=== PATIENT | female | born 1955 | race Caucasian/White ===

== ENCOUNTER 2017-06-13 18:54 | Outpatient (CLI) | payer OTHER | END 2017-06-13 18:55 | disposition critical access hospital (66) | LOC: EMS 18:54 | PROVIDERS: ATTEND Surgery | DX: R10.9 Unspecified abdominal pain (principal); R11.2 Nausea with vomiting, unspecified | CPT/HCPCS: A0425; A0427 ==

== ENCOUNTER 2017-06-13 19:14 | Observation (INO) | payer OTHER ==
[2017-06-13] MEDS ORDERED: HYDROCORTISONE SUCCINATE 100 MG/2 ML VIAL IVP STA (19:25)
[2017-06-13] MEDS ORDERED: ONDANSETRON 4 MG/2 ML VIAL IVP STA (19:25)
[2017-06-13] MEDS ORDERED: SODIUM CHLORIDE 0.9% 1,000 ML IV ONE ×2 (19:25)
[2017-06-13] MEDS ORDERED: HYDROCORTISONE SUCCINATE 100 MG/2 ML VIAL ONE (19:33)
[2017-06-13] MEDS ORDERED: ONDANSETRON 4 MG/2 ML VIAL ONE (19:33)
[2017-06-13] MEDS ORDERED: PROMETHAZINE INJ 25 MG in SODIUM CHLORIDE 0.9% 50 ML IV STA (20:08)
--- NOTE | 2017-06-13 20:09 | ED Physician Documentation ---
History of Present Illness - Stated complaint Stated Complaint: ABD PN/NAUSEA - Chief complaint Chief Complaint: Abd Pain - History obtained from History obtained from: Patient, Family - History of Present Illness Timing: Today Pain level max: 5 Pain level now: 5 - Additonal information Additional information: Patient is a 61-year-old female who recently moved here from [place]. She has a history of [place]'s disease and is decreased her steroids from 4 pills twice a day to 3 pills twice a day. Today developed vomiting. Also weakness. Also lightheadedness and dizziness. She states that this is what her normal adrenal crisis feels like. Denies any fevers. States her abdomen is sore, but no pain prior to vomiting. Has not taken anything for the vomiting. Worse with eating. Nothing makes it better Review of Systems Ten Systems: 10 systems reviewed and negative Constitutional: denies: Fever, Chills Ears: denies: Ear pain Nose: denies: Rhinorrhea / runny nose, Congestion Throat: denies: Sore throat Cardiac: denies: Chest pain / pressure Respiratory: denies: Cough, Wheezing : denies: Dysuria, Frequency, Hesitancy Skin: denies: Rash Musculoskeletal: denies: Neck pain, Back pain Neurologic: denies: Headache PD PAST MEDICAL HISTORY - Past Medical History Past Medical History: Yes Respiratory: Asthma Endocrine/Autoimmune: Type 2 diabetes, HyPOthyroidism, Other Musculoskeletal: Fibromyalgia Other Past Medical History: addisons disease, CLL - Past Surgical History Past Surgical History: Yes Ortho: Knee replacement, Other /[employer]: Hysterectomy, Oophrectomy - Present Medications Home Medications: Ambulatory Orders Medication Instructions Recorded Confirmed Duloxetine HCl [Cymbalta] 1 tab PO DAILY 06/13/17 06/13/17 Fludrocortisone [Florinef] 1 tab PO DAILY 06/13/17 06/13/17 Hydrocortisone 3 tab PO BID 06/13/17 06/13/17 Levothyroxine [Synthroid] 1 tab PO DAILY 06/13/17 06/13/17 Lisinopril 5 mg PO DAILY 06/13/17 06/13/17 Mirabegron [Myrbetriq] 1 tab PO DAILY 06/13/17 06/13/17 Omeprazole [PriLOSEC] 1 tab PO DAILY 06/13/17 06/13/17 metFORMIN [Glucophage] 500 mg PO BIDWM 06/13/17 06/13/17 - Allergies Allergies/Adverse Reactions: Allergies Allergy/AdvReac Type Severity Reaction Status Date / Time No Known Drug Allergies Allergy Verified 06/13/17 19:24 - Social History Does the pt smoke?: No Smoking Status: Never smoker PD ED PE NORMAL - Vitals Vital signs reviewed: Yes - General General: Alert and oriented X 3, No acute distress, Well developed/nourished - HEENT HEENT: PERRL, Moist mucous membranes - Neck Neck: Supple, no meningeal sign - Cardiac Cardiac: RRR, Strong equal pulses - Respiratory Respiratory: No respiratory distress, Clear bilaterally - Abdomen Abdomen: Soft, Non distended, Other (Mild diffuse tenderness without peritoneal signs.) - Back Back: No spinal TTP - Derm Derm: Warm and dry, No rash - Extremities Extremities: No edema, No calf tenderness / cord - Neuro Neuro: Alert and oriented X 3, fitter placer 2-12 intact, No motor deficit, No sensory deficit, Normal speech - Psych Psych: Normal mood, Normal affect Results - Vitals Vitals: Vital Signs - 24 hr 06/13/17 06/13/17 06/13/17 19:15 19:33 20:37 Temperature 36.0 C L Heart Rate 99 88 88 Respiratory 20 28 H 19 Rate Blood Pressure 120/74 124/66 126/80 O2 Saturation 100 100 93 Oxygen O2 Source Room air Oxygen Flow Rate 1 - Labs Labs: Laboratory Tests 06/13/17 06/13/17 06/13/17 20:07 20:07 20:07 WBC 22.8 H RBC 5.45 H Hgb 14.8 Hct 46.0 MCV 84.3 MCH 27.1 MCHC 32.1 RDW 14.7 Plt Count 398 MPV 8.7 Neut # Not Reportable Lymph # Not Reportable [place] # Not Reportable Eos # Not Reportable Baso # Not Reportable Absolute Nucleated RBC Not Reportable Total Counted 100 Band Neuts % (Manual) 3 Nucleated RBC % Not Reportable Neutrophils # (Manual) 21.4 H Lymphocytes # (Manual) 0.9 L Monocytes # (Manual) 0.5 Manual Slide Review Indicated Platelet Estimate NORMAL (130-450,000) Platelet Morphology NORMAL APPEARANCE RBC Morph Micro Appear NORMAL APPEARANCE Sodium 136 Potassium 4.0 Chloride 100 L Carbon Dioxide 21 Anion Gap 15.0 H BUN 24 H Creatinine 1.1 H Estimated GFR (MDRD) 51 L Glucose 116 H Calcium 9.2 Total Bilirubin 0.4 AST 27 ALT 36 Alkaline Phosphatase 75 Total Protein 7.2 Albumin 4.1 Globulin 3.1 Albumin/Globulin Ratio 1.3 Lipase 36 TSH 1.68 Free T4 0.92 Urine Color Urine Clarity Urine pH Ur Specific [place] Urine Protein Urine Glucose (UA) Urine Ketones Urine Occult Blood Urine Nitrite Urine Bilirubin Urine Urobilinogen Ur Leukocyte Esterase Urine RBC Urine WBC Ur Squamous Epith Cells Urine Bacteria Urine Casts Urine Mucus Ur Microscopic Review Urine Culture Comments 06/13/17 20:07 WBC RBC Hgb Hct MCV MCH MCHC RDW Plt Count MPV Neut # Lymph # [place] # Eos # Baso # Absolute Nucleated RBC Total Counted Band Neuts % (Manual) Nucleated RBC % Neutrophils # (Manual) Lymphocytes # (Manual) Monocytes # (Manual) Manual Slide Review Platelet Estimate Platelet Morphology RBC Morph Micro Appear Sodium Potassium Chloride Carbon Dioxide Anion Gap BUN Creatinine Estimated GFR (MDRD) Glucose Calcium Total Bilirubin AST ALT Alkaline Phosphatase Total Protein Albumin Globulin Albumin/Globulin Ratio Lipase TSH Free T4 Urine Color YELLOW Urine Clarity CLEAR Urine pH 7.5 Ur Specific [place] 1.020 Urine Protein 100 H Urine Glucose (UA) NEGATIVE Urine Ketones TRACE Urine Occult Blood NEGATIVE Urine Nitrite NEGATIVE Urine Bilirubin NEGATIVE Urine Urobilinogen 0.2 (NORMAL) Ur Leukocyte Esterase NEGATIVE Urine RBC None Seen Urine WBC 6-10 H Ur Squamous Epith Cells FEW Squamous Urine Bacteria Few Urine Casts 6-10 Hyaline Casts Urine Mucus Few Strands Ur Microscopic Review INDICATED Urine Culture Comments INDICATED PD MEDICAL DECISION MAKING - ED course Complexity details: reviewed results, re-evaluated patient, considered differential, d/w patient, d/w family ED course: Patient is a 61-year-old female with a history of [place]'s disease who presents to the emergency department with what appears to be a mild adrenal crisis. Given Solu-Cortef as well as Phenergan and Zofran. Also given IV fluids. She is still remains lightheaded with standing and nauseated. Unable to tolerate adequate p.o. Given Rocephin for the UTI. Will place her in observation for further care throughout the night and to ensure that she returns to her baseline status. Discussed the case with Dr. Beck, hospitalist who accepts. This document was made in part using voice recognition software. While efforts are made to proofread this document, sound alike and grammatical errors may occur. Departure - Departure Disposition: ED Place in Observation Clinical Impression: Addisonian crisis, Dehydration UTI (urinary tract infection) Qualifiers: Urinary tract infection type: acute cystitis Hematuria presence: without hematuria Qualified Code(s): N30.00 - Acute cystitis without hematuria Vomiting Qualifiers: Vomiting type: unspecified Vomiting Intractability: intractable Nausea presence : with nausea Qualified Code(s): R11.2 - Nausea with vomiting, unspecified Condition: Good Discharge Date/Time: 06/13/17 23:32
[2017-06-13] MEDS ORDERED: PROMETHAZINE 25 MG/1 ML VIAL ONE (20:16)
[2017-06-13 20:18] LABS: BASOPHILS % (AUTO) 0.4 %; EOSINOPHILS % (AUTO) 0.6 %; HGB - HEMOGLOBIN 14.8 g/dL (12.0-16.0); LYMPHOCYTES % (AUTO) 6.7 %; MEAN CORPUSCULAR HEMOGLOBIN 27.1 pg (27.0-31.0); MEAN CORPUSCULAR HGB CONC 32.1 g/dL (32.0-36.0); MEAN CORPUSCULAR VOLUME 84.3 fL (81.0-99.0); MEAN PLATELET VOLUME 8.7 fL (7.9-10.8); MONOCYTES % (AUTO) 6.4 %; NEUTROPHILS % (AUTO) 85.9 %; RED BLOOD COUNT 5.45 10^6/uL (4.20-5.40); RED CELL DISTRIBUTION WIDTH 14.7 % (12.0-15.0); UNCORRECTED WHITE BLOOD COUNT 22.8 x10^3/uL; WHITE BLOOD COUNT 22.8 x10^3/uL (4.8-10.8)
[2017-06-13 20:26] LABS: BILIRUBIN,URINE NEGATIVE (NEGATIVE); PH,URINE 7.5 PH (5.0-7.5)
[2017-06-13 20:30] LABS: UA w/ MICROSCOPIC CHARGE YES
[2017-06-13 20:40] LABS: ALBUMIN/GLOBULIN RATIO 1.3 (1.0-2.2); BILIRUBIN,TOTAL 0.4 mg/dL (0.2-1.0); CALCIUM 9.2 mg/dL (8.5-10.3); CREATININE 1.1 mg/dL (0.4-1.0); TOTAL PROTEIN 7.2 g/dL (6.7-8.2)
[2017-06-13 20:43] LABS: UR CULTURE IF IND INDICATED
[2017-06-13] MEDS ORDERED: KETOROLAC 60 MG/2 ML VIAL IVP STA (20:47)
[2017-06-13 20:51] LABS: BAND NEUTROPHILS % (MANUAL) 3 %; LYMPHOCYTES % (MANUAL) 4 %; NEUTROPHILS % (MANUAL) 91 %; TOTAL CELLS COUNTED 100
[2017-06-13 20:52] LABS: NP AUTO DIFFERENTIAL? YES; NP MAN DIFFERENTIAL? NO; PLATELET ESTIMATE, MANUAL NORMAL (130-450,000) (NORMAL); PLATELET MORPHOLOGY NORMAL APPEARANCE (NORMAL)
[2017-06-13] MEDS ORDERED: cefTRIAXone 1 GM VIAL IVP STA (20:57)
[2017-06-13] MEDS ORDERED: KETOROLAC 30 MG/ML VIAL ONE (20:57)
[2017-06-13 20:59] LABS: THYROID STIMULATING HORMONE 1.68 uIU/mL (0.34-5.60)
[2017-06-13] MEDS ORDERED: cefTRIAXone 1 GM VIAL ONE (21:17)
[2017-06-13] MEDS ORDERED: oxyCODONE 5 MG TABLET PO PRN ×2 (22:31)
[2017-06-13] MEDS ORDERED: SODIUM CHLORIDE FLUSH 0.9% 10 ML SYRINGE IVP PRN (22:31)
[2017-06-13] MEDS ORDERED: PROMETHAZINE 25 MG/1 ML VIAL IM PRN (22:31)
[2017-06-13] MEDS ORDERED: ONDANSETRON 4 MG/2 ML VIAL IVP PRN (22:31)
[2017-06-13] MEDS ORDERED: ZOLPIDEM 5 MG TABLET PO PRN (22:31)
[2017-06-13] MEDS ORDERED: PROCHLORPERAZINE 10 MG/2 ML VIAL IVP PRN (22:31)
--- NOTE | 2017-06-13 22:51 | HISTORY & PHYSICAL EXAMINATION ---
Chief Complaint - Chief Complaint Chief Complaint: Nausea and vomiting History of Present Illness - Admitted From Admitted From:: Emergency department - History Obtained From Records Reviewed: Yes History obtained from: Patient Exam Limitations: None - History of Present Illness HPI Comment/Other: Patient is a 61-year-old female with a past medical history significant for Juan Francisco's disease, CLL in remission, asthma, fibromyalgia, diabetes on metformin , hyperlipidemia, hypertension, osteoarthritis and hypothyroidism who presented to the emergency department with a chief complaint of nausea and vomiting. The patient states that when she woke up this morning she felt slightly nauseous and throughout the day felt queasy but did not vomit. She states that her symptoms intensified at around 5 PM and then she began having episodes of emesis. She states that she had several episodes at home and then began to develop shaking and muscle spasms. The patient states that she had spasming of her arms, legs and aching all throughout her body. She states that she felt as though she was going to pass out. She states that she was having cold sweats and all of this is very similar to her symptoms when she gets in Juan Francisco's crisis. The patient denies any fevers, urinary urgency, urinary frequency or dysuria. She also denies having had any cough, shortness of air, neck stiffness , headache or focal neurologic deficits. The patient denies having any abdominal pain or diarrhea. The patient states that she has an emergency cortisone injection and injected herself at home thinking that this may improve her symptoms however she continued to have symptoms and finally decided she needed to come into the emergency department. The patient denies any nasal congestion, sore throat, difficulty swallowing, orthopnea, PND, increased lower extremity swelling, changes in her appetite, recent unintentional weight loss, night sweats, back pain, joint swelling, joint pain, polyuria, polydipsia, hair loss, skin changes, changes in her vision. On presentation to the emergency department the patient was afebrile and slightly tachycardic with heart rate of 99 her blood pressure was normal and she was not in any respiratory distress. The patient did have nausea and vomiting in the emergency department. And she did complain of muscle spasms and stiffness. The patient was given a liter of IV fluid, a dose of hydrocortisone 100 mg IV, several doses of Zofran and Toradol. The patient did have some improvement in her symptoms but was still unable to keep down water and food in the emergency department. The patient was found to have a WBC of 22.8 her electrolytes were within normal limits. The patient had a urine analysis which did show 6-10 WBCs and a few bacteria consistent with a urinary tract infection. The patient was given a dose of IV ceftriaxone in the emergency department. Given the patient's nausea and vomiting and inability to keep down p.o. medication in the setting of likely Juan Francisco's crisis the patient was placed in observation for further treatment of her nausea and treatment for [place]'s with IV hydrocortisone. History - Past Medical History Cardiovascular: reports: Hypertension, High cholesterol Respiratory: reports: Asthma Endocrine/Autoimmune: reports: Type 2 diabetes, HyPOthyroidism, Other ([place]' s disease) Musculoskeletal: reports: Osteoarthritis, Fibromyalgia MRSA Hx?: No Other Past Medical History: addisons disease, CLL - Past Surgical History Ortho: reports: Knee replacement, Other /[employer]: reports: Hysterectomy, Oophrectomy - Family & Social History Family History: Mother: , CAD, Father: Alive and Well (3 sisters with lupus, 2 sisters with rheumatoid arthritis), Cancer (Dad had melanoma, paternal grandmother had stomach cancer), Sister: Alive and Well, Diabetes, Type 2, Other family: Cancer Living arrangement: At home Living Situation: With family Social History Notes: The patient is originally from [place], [place]. She worked there in the [employer] system for 36 years and recently retired at the beginning of this year. The patient has now moved to [facility] just a few months ago. She [place] a [place] the [address] but is currently living with her sister as her house is being painted. She moved would be [place] for fdc and to be closer to her sister. The patient is she had 2 biological children 1 of whom and the other one is grown and lives in [place]. The patient is fully independent. She has never smoked cigarettes she does not currently drink alcohol and denies any illicit drug use. - POLST Patient has POLST: No POLST Status: Full Code Meds/Allgy - Home Medications Home Medications: Ambulatory Orders Medication Instructions Recorded Confirmed Duloxetine HCl [Cymbalta] 1 tab PO DAILY 06/13/17 06/13/17 Fludrocortisone [Florinef] 1 tab PO DAILY 06/13/17 06/13/17 Hydrocortisone 3 tab PO BID 06/13/17 06/13/17 Levothyroxine [Synthroid] 1 tab PO DAILY 06/13/17 06/13/17 Lisinopril 5 mg PO DAILY 06/13/17 06/13/17 Mirabegron [Myrbetriq] 1 tab PO DAILY 06/13/17 06/13/17 Omeprazole [PriLOSEC] 1 tab PO DAILY 06/13/17 06/13/17 metFORMIN [Glucophage] 500 mg PO BIDWM 06/13/17 06/13/17 - Allergies Allergies/Adverse Reactions: Allergies Allergy/AdvReac Type Severity Reaction Status Date / Time No Known Drug Allergies Allergy Verified 06/13/17 19:24 Review of Systems - Other Findings Other Findings: A comprehensive review of systems was performed the pertinent positives and negatives are stated above in the HPI and the remainder of the review of systems is negative. Exam - Vital Signs Reviewed Vital Signs: Yes Vital Signs: Vital Signs x48h Temp Pulse Resp BP Pulse Ox 06/13/17 20:37 88 19 126/80 93 06/13/17 19:33 88 28 H 124/66 100 06/13/17 19:15 36.0 C L 99 20 120/74 100 - Physical Exam General Appearance: positive: Alert, Mild distress (Still nauseated and appears ill and weak) Eyes Bilateral: positive: Normal inspection, PERRL, EOMI, No lid inflammation, Conjunctivae nml, No scleral icterus ENT: positive: ENT inspection nml, Pharynx nml, Dry mucous membranes. negative : Purulent nasal drainage, Pharyngeal erythema, Oral lesions Neck: positive: Nml inspection, Thyroid nml, No JVD, Trachea midline. negative : Thyromegaly, Lymphadenopathy (R), Lymphadenopathy (L), Stiff neck, Carotid bruit, Tracheal deviation Respiratory: positive: Chest non-tender, No respiratory distress, Breath sounds nml. negative: Wheezes, Rales, Rhonchi Cardiovascular: positive: Regular rate & rhythm, No murmur, No gallop Peripheral Pulses: positive: 2+ Abdomen: positive: Non-tender, No organomegaly, Nml bowel sounds, No distention. negative: Guarding, Rebound, Hepatomegaly Back: positive: Nml inspection. negative: CVA tenderness (R), CVA tenderness (L ) Skin: positive: Color nml, No rash, Warm, Dry. negative: Diaphoresis, Pallor Extremities: positive: Non-tender, Full ROM, Nml appearance, No pedal edema Neurologic/Psychiatric: positive: Oriented x3, CN's nml (2-12), Motor nml, Sensation nml, Mood/affect nml Conclusion/Plan - Problem List (1) Addisonian crisis Conclusion/Plan: Patient has a history of [place]'s disease. She appears to be presenting with an Juan Francisco's crisis. She states that the symptoms are typical to her normal [place]'s crisis with muscle spasms and cold sweats. The patient's symptoms started after she had nausea and vomiting through the day. It is likely that the patient has developed a gastroenteritis or has a urinary tract infection that is leading to increased stress on her endocrine system and with poor response to stress due to the [place]'s disease she is now going into an Juan Francisco 's crisis. The patient did have some response to IV hydrocortisone and antiemetics in the emergency department however she was still unable to tolerate p.o. intake and therefore is being placed in observation for further treatment with IV hydrocortisone and treatment for her nausea. The patient is hemodynamically stable. Plan: IV hydrocortisone 50 mg every 8 hours IV fluids IV antibiotics for treatment of urinary tract infection Check morning cortisol level Monitor vital signs Once patient has improved we will likely need to switch her to oral steroids and increase her maintenance dose for the next several days and then taper back down to her maintenance dose. The patient will need to establish care with her primary care physician now that she is moved would be [place] and will likely need to be referral to an laborer [facility] for further management of her Juan Francisco's disease (2) Nausea and vomiting Conclusion/Plan: The patient presents with intractable nausea and vomiting. Despite treatment with several doses of Zofran and Phenergan in the emergency department the patient continued to be nauseated and unable to tolerate p.o. intake. The patient may have this nausea secondary to urinary tract infection or this could be a separate process and a gastroenteritis. Either way this has caused a [place]'s crisis and the patient is being placed in observation for treatment of her nausea and vomiting. Plan: Give IV fluids Give IV antiemetics Monitor electrolytes and vital signs (3) UTI (urinary tract infection) Conclusion/Plan: The patient was afebrile and had no urinary symptoms at home. However she did present with nausea and vomiting. She also had symptoms of her normal [place]' s crisis. The patient's WBC count was elevated at 22.8 suggesting possible infection. The patient's urinalysis did have some WBCs and bacteria concerning for infection. Given the patient's history of Juan Francisco's disease and current [place] crisis symptoms in the setting of having an elevated leukocytosis although the patient's UA is not very impressive and she does not have urinary symptoms we will side on the side of caution and treat patient for urinary tract infection with IV antibiotics. Plan: Give patient IV ceftriaxone daily Follow-up urine culture Qualifiers: Urinary tract infection type: acute cystitis Hematuria presence: without hematuria Qualified Code(s): N30.00 - Acute cystitis without hematuria (4) Diabetes Conclusion/Plan: Patient has a history of diabetes and is on metformin at home. Her blood glucose is only mildly elevated at 116 on presentation. Plan: Patient will be placed on sliding scale insulin while she is hospitalized Patient will be placed on diabetic diet while she is hospitalized We will check a hemoglobin A1c We will monitor patient's blood glucose before meals at bedtime Qualifiers: Diabetes mellitus type: type 2 (5) Hypertension Conclusion/Plan: Patient states that her blood pressure fluctuates between high and low. She is on Florinef and she is on lisinopril at home. On presentation to the emergency department the patient's blood pressure is in the normal range. Plan: Patient will be continued on her home dose of lisinopril and Florinef while she is hospitalized Qualifiers: Hypertension type: essential hypertension Qualified Code(s): I10 - Essential (primary) hypertension (6) Hypothyroidism Conclusion/Plan: Patient has history of hypothyroidism and is on Synthroid at home. The patient' s TSH level is within the normal range on presentation. Plan: Patient will be continued on her home dose of Synthroid (7) Prophylactic use of low molecular weight heparin for venous thromboembolism Conclusion/Plan: Patient will be placed on Lovenox for DVT prophylaxis while she is hospitalized. - Lab Results Lab results reviewed: Yes Fish Bones: 06/13/17 20:07 06/13/17 20:07 Other Lab Results: Laboratory Results WBC 22.8 x10^3/uL (4.8-10.8) H 06/13/17 20:07 RBC 5.45 10^6/uL (4.20-5.40) H 06/13/17 20:07 Hgb 14.8 g/dL (12.0-16.0) 06/13/17 20:07 Hct 46.0 % (37.0-47.0) 06/13/17 20:07 MCV 84.3 fL (81.0-99.0) 06/13/17 20:07 MCH 27.1 pg (27.0-31.0) 06/13/17 20:07 MCHC 32.1 g/dL (32.0-36.0) 06/13/17 20:07 RDW 14.7 % (12.0-15.0) 06/13/17 20:07 Plt Count 398 10^3/uL (130-450) 06/13/17 20:07 MPV 8.7 fL (7.9-10.8) 06/13/17 20:07 Neut # Not Reportable 06/13/17 20:07 Lymph # Not Reportable 06/13/17 20:07 Josephine # Not Reportable 06/13/17 20:07 Eos # Not Reportable 06/13/17 20:07 Baso # Not Reportable 06/13/17 20:07 Absolute Nucleated RBC Not Reportable 06/13/17 20:07 Total Counted 100 06/13/17 20:07 Band Neuts % (Manual) 3 % (0-10) 06/13/17 20:07 Nucleated RBC % Not Reportable 06/13/17 20:07 Neutrophils # (Manual) 21.4 10^3/uL (1.5-6.6) H 06/13/17 20:07 Lymphocytes # (Manual) 0.9 10^3/uL (1.5-3.5) L 06/13/17 20:07 Monocytes # (Manual) 0.5 10^3/uL (0.0-1.0) 06/13/17 20:07 Manual Slide Review Indicated 06/13/17 20:07 Platelet Estimate NORMAL (130-450,000) (NORMAL) 06/13/17 20:07 Platelet Morphology NORMAL APPEARANCE (NORMAL) 06/13/17 20:07 RBC Morph Micro Appear NORMAL APPEARANCE (NORMAL) 06/13/17 20:07 Sodium 136 mmol/L (135-145) 06/13/17 20:07 Potassium 4.0 mmol/L (3.5-5.0) 06/13/17 20:07 Chloride 100 mmol/L (101-111) L 06/13/17 20:07 Carbon Dioxide 21 mmol/L (21-32) 06/13/17 20:07 Anion Gap 15.0 (6-13) H 06/13/17 20:07 BUN 24 mg/dL (6-20) H 06/13/17 20:07 Creatinine 1.1 mg/dL (0.4-1.0) H 06/13/17 20:07 Estimated GFR (MDRD) 51 (>89) L 06/13/17 20:07 Glucose 116 mg/dL (70-100) H 06/13/17 20:07 Calcium 9.2 mg/dL (8.5-10.3) 06/13/17 20:07 Total Bilirubin 0.4 mg/dL (0.2-1.0) 06/13/17 20:07 AST 27 IU/L (10-42) 06/13/17 20:07 ALT 36 IU/L (10-60) 06/13/17 20:07 Alkaline Phosphatase 75 IU/L (42-121) 06/13/17 20:07 Total Protein 7.2 g/dL (6.7-8.2) 06/13/17 20:07 Albumin 4.1 g/dL (3.2-5.5) 06/13/17 20:07 Globulin 3.1 g/dL (2.1-4.2) 06/13/17 20:07 Albumin/Globulin Ratio 1.3 (1.0-2.2) 06/13/17 20:07 Lipase 36 U/L (22-51) 06/13/17 20:07 TSH 1.68 uIU/mL (0.34-5.60) 06/13/17 20:07 Free T4 0.92 ng/dL (0.58-1.64) 06/13/17 20:07 Urine Color YELLOW 06/13/17 20:07 Urine Clarity CLEAR (CLEAR) 06/13/17 20:07 Urine pH 7.5 PH (5.0-7.5) 06/13/17 20:07 Ur Specific [place] 1.020 (1.002-1.030) 06/13/17 20:07 Urine Protein 100 mg/dL (NEGATIVE) H 06/13/17 20:07 Urine Glucose (UA) NEGATIVE mg/dL (NEGATIVE) 06/13/17 20:07 Urine Ketones TRACE mg/dL (NEGATIVE) 06/13/17 20:07 Urine Occult Blood NEGATIVE (NEGATIVE) 06/13/17 20:07 Urine Nitrite NEGATIVE (NEGATIVE) 06/13/17 20:07 Urine Bilirubin NEGATIVE (NEGATIVE) 06/13/17 20:07 Urine Urobilinogen 0.2 (NORMAL) E.U./dL (NORMAL) 06/13/17 20:07 Ur Leukocyte Esterase NEGATIVE (NEGATIVE) 06/13/17 20:07 Urine RBC None Seen /HPF (0-5) 06/13/17 20:07 Urine WBC 6-10 /HPF (0-5) H 06/13/17 20:07 Ur Squamous Epith Cells FEW Squamous (<= Few) 06/13/17 20:07 Urine Bacteria Few /HPF (None Seen) 06/13/17 20:07 Urine Casts 6-10 Hyaline Casts /LPF 06/13/17 20:07 Urine Mucus Few Strands 06/13/17 20:07 Ur Microscopic Review INDICATED 06/13/17 20:07 Urine Culture Comments INDICATED 06/13/17 20:07 - Diagnostic Imaging Results Diagnostic Imaging Results Comments: Laboratory Results WBC 22.8 x10^3/uL (4.8-10.8) H 06/13/17 20:07 RBC 5.45 10^6/uL (4.20-5.40) H 06/13/17 20:07 Hgb 14.8 g/dL (12.0-16.0) 06/13/17 20:07 Hct 46.0 % (37.0-47.0) 06/13/17 20:07 MCV 84.3 fL (81.0-99.0) 06/13/17 20:07 MCH 27.1 pg (27.0-31.0) 06/13/17 20:07 MCHC 32.1 g/dL (32.0-36.0) 06/13/17 20:07 RDW 14.7 % (12.0-15.0) 06/13/17 20:07 Plt Count 398 10^3/uL (130-450) 06/13/17 20:07 MPV 8.7 fL (7.9-10.8) 06/13/17 20:07 Neut # Not Reportable 06/13/17 20:07 Lymph # Not Reportable 06/13/17 20:07 Josephine # Not Reportable 06/13/17 20:07 Eos # Not Reportable 06/13/17 20:07 Baso # Not Reportable 06/13/17 20:07 Absolute Nucleated RBC Not Reportable 06/13/17 20:07 Total Counted 100 06/13/17 20:07 Band Neuts % (Manual) 3 % (0-10) 06/13/17 20:07 Nucleated RBC % Not Reportable 06/13/17 20:07 Neutrophils # (Manual) 21.4 10^3/uL (1.5-6.6) H 06/13/17 20:07 Lymphocytes # (Manual) 0.9 10^3/uL (1.5-3.5) L 06/13/17 20:07 Monocytes # (Manual) 0.5 10^3/uL (0.0-1.0) 06/13/17 20:07 Manual Slide Review Indicated 06/13/17 20:07 Platelet Estimate NORMAL (130-450,000) (NORMAL) 06/13/17 20:07 Platelet Morphology NORMAL APPEARANCE (NORMAL) 06/13/17 20:07 RBC Morph Micro Appear NORMAL APPEARANCE (NORMAL) 06/13/17 20:07 Sodium 136 mmol/L (135-145) 06/13/17 20:07 Potassium 4.0 mmol/L (3.5-5.0) 06/13/17 20:07 Chloride 100 mmol/L (101-111) L 06/13/17 20:07 Carbon Dioxide 21 mmol/L (21-32) 06/13/17 20:07 Anion Gap 15.0 (6-13) H 06/13/17 20:07 BUN 24 mg/dL (6-20) H 06/13/17 20:07 Creatinine 1.1 mg/dL (0.4-1.0) H 06/13/17 20:07 Estimated GFR (MDRD) 51 (>89) L 06/13/17 20:07 Glucose 116 mg/dL (70-100) H 06/13/17 20:07 Calcium 9.2 mg/dL (8.5-10.3) 06/13/17 20:07 Total Bilirubin 0.4 mg/dL (0.2-1.0) 06/13/17 20:07 AST 27 IU/L (10-42) 06/13/17 20:07 ALT 36 IU/L (10-60) 06/13/17 20:07 Alkaline Phosphatase 75 IU/L (42-121) 06/13/17 20:07 Total Protein 7.2 g/dL (6.7-8.2) 06/13/17 20:07 Albumin 4.1 g/dL (3.2-5.5) 06/13/17 20:07 Globulin 3.1 g/dL (2.1-4.2) 06/13/17 20:07 Albumin/Globulin Ratio 1.3 (1.0-2.2) 06/13/17 20:07 Lipase 36 U/L (22-51) 06/13/17 20:07 TSH 1.68 uIU/mL (0.34-5.60) 06/13/17 20:07 Free T4 0.92 ng/dL (0.58-1.64) 06/13/17 20:07 Urine Color YELLOW 06/13/17 20:07 Urine Clarity CLEAR (CLEAR) 06/13/17 20:07 Urine pH 7.5 PH (5.0-7.5) 06/13/17 20:07 Ur Specific [place] 1.020 (1.002-1.030) 06/13/17 20:07 Urine Protein 100 mg/dL (NEGATIVE) H 06/13/17 20:07 Urine Glucose (UA) NEGATIVE mg/dL (NEGATIVE) 06/13/17 20:07 Urine Ketones TRACE mg/dL (NEGATIVE) 06/13/17 20:07 Urine Occult Blood NEGATIVE (NEGATIVE) 06/13/17 20:07 Urine Nitrite NEGATIVE (NEGATIVE) 06/13/17 20:07 Urine Bilirubin NEGATIVE (NEGATIVE) 06/13/17 20:07 Urine Urobilinogen 0.2 (NORMAL) E.U./dL (NORMAL) 06/13/17 20:07 Ur Leukocyte Esterase NEGATIVE (NEGATIVE) 06/13/17 20:07 Urine RBC None Seen /HPF (0-5) 06/13/17 20:07 Urine WBC 6-10 /HPF (0-5) H 06/13/17 20:07 Ur Squamous Epith Cells FEW Squamous (<= Few) 06/13/17 20:07 Urine Bacteria Few /HPF (None Seen) 06/13/17 20:07 Urine Casts 6-10 Hyaline Casts /LPF 06/13/17 20:07 Urine Mucus Few Strands 06/13/17 20:07 Ur Microscopic Review INDICATED 06/13/17 20:07 Urine Culture Comments INDICATED 06/13/17 20:07 Issues/Core Measures - Anticipated LOS Anticipated Stay Length: Less than 2 midnights - DVT/VTE - Prophylaxis VTE/DVT Prophylaxis med ordered at admit?: Yes
[2017-06-14] MEDS: SODIUM CHLORIDE 0.9% 1,000 ML IV SCH ×3 (00:10→14:31)
[2017-06-14] MEDS: ACETAMINOPHEN 325 MG TABLET PO PRN ×3 (05:10→19:30)
[2017-06-14 06:09] LABS: BASOPHILS % (AUTO) 0.2 %; EOSINOPHILS % (AUTO) 0.2 %; HCT - HEMATOCRIT 41.2 % (37.0-47.0); HGB - HEMOGLOBIN 13.5 g/dL (12.0-16.0); LYMPHOCYTES # (AUTO) 0.6 10^3/uL (1.5-3.5); LYMPHOCYTES % (AUTO) 6.2 %; MEAN CORPUSCULAR HEMOGLOBIN 27.8 pg (27.0-31.0); MEAN CORPUSCULAR HGB CONC 32.7 g/dL (32.0-36.0); MEAN CORPUSCULAR VOLUME 84.8 fL (81.0-99.0); MEAN PLATELET VOLUME 8.3 fL (7.9-10.8); MONOCYTES # (AUTO) 0.3 10^3/uL (0.0-1.0); MONOCYTES % (AUTO) 3.4 %; NEUTROPHILS # (AUTO) 8.9 10^3/uL (1.5-6.6); RED BLOOD COUNT 4.85 10^6/uL (4.20-5.40); RED CELL DISTRIBUTION WIDTH 14.6 % (12.0-15.0); UNCORRECTED WHITE BLOOD COUNT 9.9 x10^3/uL; WHITE BLOOD COUNT 9.9 x10^3/uL (4.8-10.8)
[2017-06-14 06:23] LABS: ALBUMIN/GLOBULIN RATIO 1.3 (1.0-2.2); BILIRUBIN,TOTAL 0.5 mg/dL (0.2-1.0); CALCIUM 8.4 mg/dL (8.5-10.3); CREATININE 0.7 mg/dL (0.4-1.0); POTASSIUM 4.4 mmol/L (3.5-5.0); TOTAL PROTEIN 5.9 g/dL (6.7-8.2)
[2017-06-14] MEDS: HYDROCORTISONE SUCCINATE 100 MG/2 ML VIAL IVP SCH ×3 (06:44→21:39)
[2017-06-14] MEDS: PANTOPRAZOLE 40 MG TABLET PO SCH (06:44)
[2017-06-14] MEDS: SODIUM CHLORIDE FLUSH 0.9% 10 ML SYRINGE IVP SCH ×3 (06:44→22:13)
[2017-06-14 08:37] LABS: HEMOGLOBIN A1C 0.67 g/dL
[2017-06-14] MEDS: POLYETHYLENE GLYCOL 3350 17 GM PACKET PO SCH (09:05)
[2017-06-14] MEDS: DULoxetine 30 MG CAPSULE PO SCH (09:05)
[2017-06-14] MEDS: SACCHAROMYCES BOULARDII 250 MG CAPSULE PO SCH ×2 (09:05→17:20)
[2017-06-14] MEDS: FLUDROCORTISONE 0.1 MG TABLET PO SCH (09:05)
[2017-06-14] MEDS: ENOXAPARIN 40 MG/0.4 ML SYRINGE SUBQ SCH (09:06)
[2017-06-14] MEDS: LEVOTHYROXINE 75 MCG TABLET PO SCH (12:22)
[2017-06-14] MEDS: INSULIN ASPART 300 UNIT/3 ML PEN SUBQ SCH ×3 (12:31→21:39)
--- NOTE | 2017-06-14 15:29 | PROVIDER PROGRESS NOTE ---
Subjective - Prog Note Date Prog Note Date: 06/14/17 - Subjective Pt reports feeling: Improved Subjective: pt state she feel much better, no muscle spasm, no abdominal pain. Feel better for nausea and vomiting Current Medications - Current Medications Current Medications: Active Medications Acetaminophen (Tylenol) 650 mg PO Q4HR PRN PRN Reason: Pain 1 to 4 Last Admin: 06/14/17 13:10 Dose: 650 mg Duloxetine HCl (Cymbalta) 60 mg PO DAILY [facility] Last Admin: 06/14/17 09:05 Dose: 60 mg Enoxaparin Sodium (Lovenox) 40 mg SUBQ DAILY [facility] Last Admin: 06/14/17 09:06 Dose: 40 mg Fludrocortisone Acetate (Florinef) 0.1 mg PO DAILY [facility] Last Admin: 06/14/17 09:05 Dose: 0.1 mg Hydrocortisone Sodium Succinate (Solu-Cortef) 50 mg IVP TID [facility] Last Admin: 06/14/17 13:51 Dose: 50 mg Ceftriaxone Sodium 1 gm/ (Sodium Chloride) 100 mls @ 200 mls/hr IV Q24H [facility] Sodium Chloride (Normal Saline 0.9%) 1,000 mls @ 100 mls/hr IV .Q10H [facility] Last Admin: 06/14/17 14:31 Dose: 100 mls/hr Insulin Aspart (Novolog) 1 - 5 unit SUBQ 0800,1200,1700,2100 CE[facility] PRN Reason: Protocol Last Admin: 06/14/17 12:31 Dose: Not Given Levothyroxine Sodium (Synthroid) 75 mcg PO DAILY [facility] Last Admin: 06/14/17 12:22 Dose: 75 mcg Ondansetron HCl (Zofran Inj) 4 mg IVP Q6HR PRN PRN Reason: Nausea / Vomiting Oxycodone HCl (Roxicodone) 5 mg PO Q4HR PRN PRN Reason: Pain 5 to 7 Oxycodone HCl (Roxicodone) 10 mg PO Q4HR PRN PRN Reason: Pain 8 to 10 Pantoprazole Sodium (Protonix) 40 mg PO QDAC [facility] Last Admin: 06/14/17 06:44 Dose: 40 mg Myrbetriq 50 Mg (Tablet) 1 each PO DAILY [facility] Last Admin: 06/14/17 12:23 Dose: 1 each Polyethylene Glycol (Miralax) 17 gm PO DAILY [facility] Last Admin: 06/14/17 09:05 Dose: 17 gm Prochlorperazine Edisylate (Compazine Inj) 10 mg IVP Q6HR PRN PRN Reason: Nausea / Vomiting Promethazine HCl (Phenergan Inj) 25 mg IM Q6HR PRN PRN Reason: Nausea / Vomiting Saccharomyces Boulardii (Florastor) 250 mg PO BIDWM [facility] Last Admin: 06/14/17 09:05 Dose: 250 mg Sodium Chloride (Normal Saline Flush 0.9%) 10 ml IVP PRN PRN PRN Reason: NEEDED PER PROVIDER ORDERS Sodium Chloride (Normal Saline Flush 0.9%) 10 ml IVP Q8HR [facility] Last Admin: 06/14/17 13:51 Dose: 10 ml Zolpidem Tartrate (Ambien) 5 mg PO QPM PRN PRN Reason: Insomnia Duloxetine HCl [Cymbalta] 60 mg PO DAILY 06/13/17 Fludrocortisone [Florinef] 0.1 mg PO DAILY 06/13/17 Hydrocortisone 15 mg PO BIDWM 06/13/17 Levothyroxine [Synthroid] 75 mcg PO DAILY 06/13/17 Lisinopril 5 mg PO DAILY 06/13/17 Mirabegron [Myrbetriq] 50 mg PO DAILY 06/13/17 Omeprazole [PriLOSEC] 20 mg PO DAILY 06/13/17 metFORMIN [Glucophage] 500 mg PO DAILYWM 06/13/17 Montelukast [Singulair] 10 mg PO QPM 06/14/17 Objective - Vital Signs/Intake & Output Reviewed Vital Signs: Yes Vital Signs: Vital Signs x48h Temp Pulse Resp BP Pulse Ox 06/14/17 12:41 36.7 C 81 18 100/52 L 94 06/14/17 08:00 36.9 C 85 18 110/66 92 Intake & Output: Intake & Output 06/11/17 06/12/17 06/13/17 06/14/17 23:59 23:59 23:59 23:59 Intake Total 2860 Output Total 800 Balance 0 - Objective General Appearance: positive: No acute distress, Alert. negative: Lethargic Eyes Bilateral: positive: Normal inspection, PERRL, No lid inflammation, Conjunctivae nml ENT: positive: ENT inspection nml, Pharynx nml, No signs of dehydration. negative: Purulent nasal drainage, Pharyngeal erythema, Oral lesions, Dry mucous membranes Neck: positive: Nml inspection, Thyroid nml, No JVD, Trachea midline. negative : Thyromegaly, Lymphadenopathy (R), Lymphadenopathy (L), Stiff neck, Carotid bruit, Swelling/bruising, Tracheal deviation Respiratory: positive: Chest non-tender, No respiratory distress, Breath sounds nml. negative: Wheezes, Rales, Rhonchi Cardiovascular: positive: Regular rate & rhythm, No murmur, No gallop. negative : Irregularly irregular, Extrasystoles, Tachycardia, Bradycardia, Systolic murmur, Diastolic murmur Peripheral Pulses: 2+ Radial (R), 2+ Radial (L), 2+ Dorsalis pedis (R), 2+ Dorsalis pedis (L) Abdomen: positive: Non-tender, No organomegaly, Nml bowel sounds, No distention. negative: Tenderness, Guarding, Rebound Back: positive: Nml inspection. negative: CVA tenderness (R), CVA tenderness (L ) Skin: positive: Color nml, No rash, Warm, Dry. negative: Cyanosis, Diaphoresis , Pallor, Skin rash Extremities: positive: Non-tender, Full ROM, Nml appearance. negative: Calf tenderness, Joint swelling, Noel's sign/cords Neurologic/Psychiatric: positive: Oriented x3, Motor nml, Sensation nml, Mood/ affect nml. negative: Sensory loss, Facial droop, Slurred/abnml speech, Depressed mood/affect - Lab Results Fish Bones: 06/14/17 05:58 06/14/17 05:58 Other Labs: Lab Results x24hrs 06/14/17 06/14/17 06/14/17 Range/Units 05:58 05:58 05:58 WBC (4.8-10.8) x10^3/uL RBC (4.20-5.40) 10^6/uL Hgb (12.0-16.0) g/dL Hct (37.0-47.0) % MCV (81.0-99.0) fL MCH (27.0-31.0) pg MCHC (32.0-36.0) g/dL RDW (12.0-15.0) % Plt Count (130-450) 10^3/uL MPV (7.9-10.8) fL Neut # (1.5-6.6) 10^3/uL Lymph # (1.5-3.5) 10^3/uL [place] # (0.0-1.0) 10^3/uL Eos # (0.0-0.7) 10^3/uL Baso # (0.0-0.1) 10^3/uL Absolute Nucleated RBC x10^3/uL Nucleated RBC % /100WBC Sodium 135 (135-145) mmol/L Potassium 4.4 (3.5-5.0) mmol/L Chloride 106 (101-111) mmol/L Carbon Dioxide 25 (21-32) mmol/L Anion Gap 4.0 L (6-13) BUN 21 H (6-20) mg/dL Creatinine 0.7 (0.4-1.0) mg/dL Estimated GFR (MDRD) 85 L (>89) Glucose 116 H (70-100) mg/dL Glycated Hemoglobin 6.4 H (4.6-6.2) % Estim Average Glucose 137 H (70-100) Calcium 8.4 L (8.5-10.3) mg/dL Total Bilirubin 0.5 (0.2-1.0) mg/dL AST 26 (10-42) IU/L ALT 33 (10-60) IU/L Alkaline Phosphatase 61 (42-121) IU/L Total Protein 5.9 L (6.7-8.2) g/dL Albumin 3.3 (3.2-5.5) g/dL Globulin 2.6 (2.1-4.2) g/dL Albumin/Globulin Ratio 1.3 (1.0-2.2) Cortisol AM Sample 4.0 ug/dL 06/14/17 Range/Units 05:58 WBC 9.9 (4.8-10.8) x10^3/uL RBC 4.85 (4.20-5.40) 10^6/uL Hgb 13.5 (12.0-16.0) g/dL Hct 41.2 (37.0-47.0) % MCV 84.8 (81.0-99.0) fL MCH 27.8 (27.0-31.0) pg MCHC 32.7 (32.0-36.0) g/dL RDW 14.6 (12.0-15.0) % Plt Count 327 (130-450) 10^3/uL MPV 8.3 (7.9-10.8) fL Neut # 8.9 H (1.5-6.6) 10^3/uL Lymph # 0.6 L (1.5-3.5) 10^3/uL [place] # 0.3 (0.0-1.0) 10^3/uL Eos # 0.0 (0.0-0.7) 10^3/uL Baso # 0.0 (0.0-0.1) 10^3/uL Absolute Nucleated RBC 0.00 x10^3/uL Nucleated RBC % 0.0 /100WBC Sodium (135-145) mmol/L Potassium (3.5-5.0) mmol/L Chloride (101-111) mmol/L Carbon Dioxide (21-32) mmol/L Anion Gap (6-13) BUN (6-20) mg/dL Creatinine (0.4-1.0) mg/dL Estimated GFR (MDRD) (>89) Glucose (70-100) mg/dL Glycated Hemoglobin (4.6-6.2) % Estim Average Glucose (70-100) Calcium (8.5-10.3) mg/dL Total Bilirubin (0.2-1.0) mg/dL AST (10-42) IU/L ALT (10-60) IU/L Alkaline Phosphatase (42-121) IU/L Total Protein (6.7-8.2) g/dL Albumin (3.2-5.5) g/dL Globulin (2.1-4.2) g/dL Albumin/Globulin Ratio (1.0-2.2) Cortisol AM Sample ug/dL Assessment/Plan - Problem List (1) Addisonian crisis Impression: (1) Addisonian crisis Conclusion/Plan: pt has cortisone level 4 at this morning, still slight lower continue IV hydrocortisone check cortisone level at 8pm and morning vital monitor Patient has a history of Ellsworth's disease. She appears to be presenting with an Ellsworth's crisis. She states that the symptoms are typical to her normal Ellsworth's crisis with muscle spasms and cold sweats. The patient's symptoms started after she had nausea and vomiting through the day. It is likely that the patient has developed a gastroenteritis or has a urinary tract infection that is leading to increased stress on her endocrine system and with poor response to stress due to the Ellsworth's disease she is now going into an Juan Francisco 's crisis. The patient did have some response to IV hydrocortisone and antiemetics in the emergency department however she was still unable to tolerate p.o. intake and therefore is being placed in observation for further treatment with IV hydrocortisone and treatment for her nausea. The patient is hemodynamically stable. Plan: IV hydrocortisone 50 mg every 8 hours IV fluids IV antibiotics for treatment of urinary tract infection Check morning cortisol level Monitor vital signs Once patient has improved we will likely need to switch her to oral steroids and increase her maintenance dose for the next several days and then taper back down to her maintenance dose. The patient will need to establish care with her primary care physician now that she is moved would be [place] and will likely need to be referral to an director of archives for further management of her Juan Francisco's disease (2) Nausea and vomiting Conclusion/Plan: better but still has nausea continue antiemetics continue iVF clear diet, advanced as tolerated daily lab, vital monitor The patient presents with intractable nausea and vomiting. Despite treatment with several doses of Zofran and Phenergan in the emergency department the patient continued to be nauseated and unable to tolerate p.o. intake. The patient may have this nausea secondary to urinary tract infection or this could be a separate process and a gastroenteritis. Either way this has caused a Juan Francisco's crisis and the patient is being placed in observation for treatment of her nausea and vomiting. Plan: Give IV fluids Give IV antiemetics Monitor electrolytes and vital signs (3) UTI (urinary tract infection) Conclusion/Plan: WBC is down to normal continue rocephin follow up UA The patient was afebrile and had no urinary symptoms at home. However she did present with nausea and vomiting. She also had symptoms of her normal Ellsworth' s crisis. The patient's WBC count was elevated at 22.8 suggesting possible infection. The patient's urinalysis did have some WBCs and bacteria concerning for infection. Given the patient's history of Ellsworth's disease and current Ellsworth crisis symptoms in the setting of having an elevated leukocytosis although the patient's UA is not very impressive and she does not have urinary symptoms we will side on the side of caution and treat patient for urinary tract infection with IV antibiotics. Plan: Give patient IV ceftriaxone daily Follow-up urine culture (4) Diabetes Conclusion/Plan: stable, add slide scale, hypoglycemia protocol check A1C Patient has a history of diabetes and is on metformin at home. Her blood glucose is only mildly elevated at 116 on presentation. Plan: Patient will be placed on sliding scale insulin while she is hospitalized Patient will be placed on diabetic diet while she is hospitalized We will check a hemoglobin A1c We will monitor patient's blood glucose before meals at bedtime (5) Hypertension Conclusion/Plan: stable, continue home meds Patient states that her blood pressure fluctuates between high and low. She is on Florinef and she is on lisinopril at home. On presentation to the emergency department the patient's blood pressure is in the normal range. Plan: Patient will be continued on her home dose of lisinopril and Florinef while she is hospitalized (6) Hypothyroidism Conclusion/Plan: TSH is normal, continue synthroid Patient has history of hypothyroidism and is on Synthroid at home. The patient' s TSH level is within the normal range on presentation. Plan: Patient will be continued on her home dose of Synthroid
[2017-06-14] MEDS ORDERED: cefTRIAXone 1 GM in SODIUM CHLORIDE 0.9% MINIBAG 100 ML IV SCH (21:00)
[2017-06-15] MEDS: SODIUM CHLORIDE 0.9% 1,000 ML IV SCH (00:42)
[2017-06-15] MEDS: PANTOPRAZOLE 40 MG TABLET PO SCH (06:03)
[2017-06-15] MEDS: HYDROCORTISONE SUCCINATE 100 MG/2 ML VIAL IVP SCH (06:03)
[2017-06-15] MEDS: SODIUM CHLORIDE FLUSH 0.9% 10 ML SYRINGE IVP SCH (06:03)
[2017-06-15 08:06] LABS: BASOPHILS % (AUTO) 0.4 %; EOSINOPHILS % (AUTO) 0.6 %; HCT - HEMATOCRIT 37.3 % (37.0-47.0); HGB - HEMOGLOBIN 12.5 g/dL (12.0-16.0); LYMPHOCYTES # (AUTO) 0.7 10^3/uL (1.5-3.5); LYMPHOCYTES % (AUTO) 11.4 %; MEAN CORPUSCULAR HEMOGLOBIN 28.1 pg (27.0-31.0); MEAN CORPUSCULAR HGB CONC 33.6 g/dL (32.0-36.0); MEAN CORPUSCULAR VOLUME 83.6 fL (81.0-99.0); MEAN PLATELET VOLUME 8.3 fL (7.9-10.8); MONOCYTES # (AUTO) 0.4 10^3/uL (0.0-1.0); NEUTROPHILS % (AUTO) 80.6 %; RED BLOOD COUNT 4.46 10^6/uL (4.20-5.40); RED CELL DISTRIBUTION WIDTH 14.9 % (12.0-15.0); UNCORRECTED WHITE BLOOD COUNT 6.2 x10^3/uL; WHITE BLOOD COUNT 6.2 x10^3/uL (4.8-10.8)
[2017-06-15] MEDS: INSULIN ASPART 300 UNIT/3 ML PEN SUBQ SCH (08:09)
[2017-06-15 08:33] LABS: ALBUMIN/GLOBULIN RATIO 1.2 (1.0-2.2); BILIRUBIN,TOTAL 0.2 mg/dL (0.2-1.0); CALCIUM 8.3 mg/dL (8.5-10.3); CREATININE 0.5 mg/dL (0.4-1.0); POTASSIUM 3.8 mmol/L (3.5-5.0); TOTAL PROTEIN 5.6 g/dL (6.7-8.2)
[2017-06-15] MEDS: POLYETHYLENE GLYCOL 3350 17 GM PACKET PO SCH (08:37)
[2017-06-15] MEDS: LEVOTHYROXINE 75 MCG TABLET PO SCH (08:38)
[2017-06-15] MEDS: ENOXAPARIN 40 MG/0.4 ML SYRINGE SUBQ SCH (08:38)
[2017-06-15] MEDS: SACCHAROMYCES BOULARDII 250 MG CAPSULE PO SCH (08:38)
[2017-06-15] MEDS: FLUDROCORTISONE 0.1 MG TABLET PO SCH (08:38)
[2017-06-15] MEDS: DULoxetine 30 MG CAPSULE PO SCH (08:38)
[2017-06-15] MEDS ORDERED: DOCUSATE SODIUM 250 MG CAPSULE PO SCH (09:00)
[2017-06-15] MEDS ORDERED: SENNA 8.6 MG TABLET PO SCH (09:00)
[2017-06-15] MEDS ORDERED: LEVOTHYROXINE 75 MCG TABLET PO SCH (09:12)
--- NOTE | 2017-06-15 09:29 | Discharge Plan ---
Discharge Plan Disposition: 01 Home, Self Care Condition: Stable Prescriptions: Sulfamethox/Trimeth 800/160 [Bactrim Ds 800/160] 1 each PO BID #14 tablet Diet: Diabetic Activity Restrictions: Activity as Tolerated Shower Restrictions: No Driving Restrictions: No Weight Bearing: Full Weight Additional Instructions or Follow Up instructions: May follow up PCP in one week, and follow up artillery officer in two weeks. No Smoking: If you smoke, Please STOP! Call for help.
--- NOTE | 2017-06-15 10:03 | DISCHARGE SUMMARY ---
Discharge Summary Admit Date: 06/13/17 Discharge Date: 06/15/17 Discharging Provider: Hortno Condition at Discharge: Stable Discharge Disposition: 01 Home, Self Care Discharge Facility Name: home - DIAGNOSES Admission Diagnoses: (1) Addisonian crisis (2) Nausea and vomiting (3) UTI (urinary tract infection) (4) Diabetes (5) Hypertension (6) Hypothyroidism Discharge Diagnoses with Status of Each Condition: (1) Addisonian crisis pt denies nausea or vomiting, cramping or muscle spasm. Pt state she feel energetic. Cortisone test reveals recovered continue home regime, follow up PCP and Fur Trimming Machine Operator management (2) Nausea and vomiting resolved (3) UTI (urinary tract infection) symptoms resolved, continue antibiotics course (4) Diabetes stable, home meds (5) Hypertension stable (6) Hypothyroidism stable - HPI History of Present Illness: please refer from Dr. Beck's HPI on 06/13/17 as the following: Patient is a 61-year-old female with a past medical history significant for Montour's disease, CLL in remission, asthma, fibromyalgia, diabetes on metformin , hyperlipidemia, hypertension, osteoarthritis and hypothyroidism who presented to the emergency department with a chief complaint of nausea and vomiting. The patient states that when she woke up this morning she felt slightly nauseous and throughout the day felt queasy but did not vomit. She states that her symptoms intensified at around 5 PM and then she began having episodes of emesis. She states that she had several episodes at home and then began to develop shaking and muscle spasms. The patient states that she had spasming of her arms, legs and aching all throughout her body. She states that she felt as though she was going to pass out. She states that she was having cold sweats and all of this is very similar to her symptoms when she gets in Juan Francisco's crisis. The patient denies any fevers, urinary urgency, urinary frequency or dysuria. She also denies having had any cough, shortness of air, neck stiffness , headache or focal neurologic deficits. The patient denies having any abdominal pain or diarrhea. The patient states that she has an emergency cortisone injection and injected herself at home thinking that this may improve her symptoms however she continued to have symptoms and finally decided she needed to come into the emergency department. The patient denies any nasal congestion, sore throat, difficulty swallowing, orthopnea, PND, increased lower extremity swelling, changes in her appetite, recent unintentional weight loss, night sweats, back pain, joint swelling, joint pain, polyuria, polydipsia, hair loss, skin changes, changes in her vision. On presentation to the emergency department the patient was afebrile and slightly tachycardic with heart rate of 99 her blood pressure was normal and she was not in any respiratory distress. The patient did have nausea and vomiting in the emergency department. And she did complain of muscle spasms and stiffness. The patient was given a liter of IV fluid, a dose of hydrocortisone 100 mg IV, several doses of Zofran and Toradol. The patient did have some improvement in her symptoms but was still unable to keep down water and food in the emergency department. The patient was found to have a WBC of 22.8 her electrolytes were within normal limits. The patient had a urine analysis which did show 6-10 WBCs and a few bacteria consistent with a urinary tract infection. The patient was given a dose of IV ceftriaxone in the emergency department. Given the patient's nausea and vomiting and inability to keep down p.o. medication in the setting of likely Juan Francisco's crisis the patient was placed in observation for further treatment of her nausea and treatment for Montour's with IV hydrocortisone. - HOSPITAL COURSE Hospital Course: Pt was admitted for Montour crisis and UTI. Pt was treated with hydrocortison injection, and rocephin for UTI. Pt's symptom was resolved. The cortisone level is recovered. pt is D/C with antibiotics course for UTI. - ALLERGIES Allergies/Adverse Reactions: Allergies Allergy/AdvReac Type Severity Reaction Status Date / Time No Known Drug Allergies Allergy Verified 06/13/17 19:24 - MEDICATIONS Home Medications: Ambulatory Orders Medication Instructions Recorded Confirmed Duloxetine HCl [Cymbalta] 60 mg PO DAILY 06/13/17 06/14/17 Fludrocortisone [Florinef] 0.1 mg PO DAILY 06/13/17 06/14/17 Hydrocortisone 15 mg PO BIDWM 06/13/17 06/14/17 Levothyroxine [Synthroid] 75 mcg PO DAILY 06/13/17 06/14/17 Lisinopril 5 mg PO DAILY 06/13/17 06/13/17 Mirabegron [Myrbetriq] 50 mg PO DAILY 06/13/17 06/14/17 Omeprazole [PriLOSEC] 20 mg PO DAILY 06/13/17 06/14/17 metFORMIN [Glucophage] 500 mg PO DAILYWM 06/13/17 06/14/17 Montelukast [Singulair] 10 mg PO QPM 06/14/17 06/14/17 Sulfamethox/Trimeth 800/160 1 each PO BID #14 tablet 06/15/17 [Bactrim Ds 800/160] - PHYSICAL EXAM AT DISCHARGE General Appearance: positive: No acute distress, Alert. negative: Lethargic Eyes Bilateral: positive: Normal inspection, PERRL, EOMI, No lid inflammation, Conjunctivae nml ENT: positive: ENT inspection nml, Pharynx nml, No signs of dehydration. negative: Purulent nasal drainage, Pharyngeal erythema, Oral lesions Neck: positive: Nml inspection, Thyroid nml, No JVD, Trachea midline. negative : Thyromegaly, Lymphadenopathy (R), Lymphadenopathy (L), Stiff neck, Carotid bruit, Swelling/bruising, Tracheal deviation Respiratory: positive: Chest non-tender, No respiratory distress, Breath sounds nml. negative: Wheezes, Rales, Rhonchi Cardiovascular: positive: Regular rate & rhythm, No murmur, No gallop. negative : Irregularly irregular, Extrasystoles, Tachycardia, Bradycardia, Systolic murmur, Diastolic murmur Peripheral Pulses: positive: 2+ Abdomen: positive: Non-tender, No organomegaly, Nml bowel sounds, No distention. negative: Tenderness, Guarding, Rebound Skin: positive: Color nml, No rash, Warm, Dry. negative: Cyanosis, Diaphoresis , Pallor, Skin rash Extremities: positive: Non-tender, Full ROM, Nml appearance. negative: No pedal edema, Pedal edema, Joint swelling, Noel's sign/cords Neurologic/Psychiatric: positive: Oriented x3, Motor nml, Sensation nml, Mood/ affect nml. negative: Weakness, Sensory loss, Facial droop, Slurred/abnml speech, Depressed mood/affect - LABS Result Diagrams: 06/15/17 07:58 06/15/17 07:58 - FOLLOW UP Follow Up: pt is advised to follow up PCP in one week and follow up Fur Trimming Machine Operator in two weeks. Pt is advised to finish the antibiotics course for UTI
[2017-06-15 12:01] VITALS: BP 111/66
== END 2017-06-15 12:01 | disposition home or self-care (01) ==
LOC: EDUNIT# → ED 19:14 → OBS 22:31
PROVIDERS: ADMIT Internal Medicine; ATTEND Nurse Practitioner Gerontology
DX: E27.2 Addisonian crisis (principal); N39.0 Urinary tract infection, site not specified; E11.9 Type 2 diabetes mellitus without complications; I10 Essential (primary) hypertension; E03.9 Hypothyroidism, unspecified; C91.11 Chronic lymphocytic leukemia of B-cell type in remission; J45.909 Unspecified asthma, uncomplicated; M79.7 Fibromyalgia; Z79.84 Long term (current) use of oral hypoglycemic drugs; E78.5 Hyperlipidemia, unspecified; M19.90 Unspecified osteoarthritis, unspecified site; Z96.659 Presence of unspecified artificial knee joint; Z79.51 Long term (current) use of inhaled steroids; Z79.899 Other long term (current) drug therapy
CPT/HCPCS: 36415; 80053; 81001; 82533; 83036; 83690; 84439; 84443; 85025; 87086; 96361; 96365; 96372; 96375; 96376; 99218; 99284; 99285; A9270; J1650; J7040; 81003

== ENCOUNTER 2018-03-24 15:45 | Emergency (ER) | payer BC, OTHER ==
--- NOTE | 2018-03-24 17:49 | ED Physician Documentation ---
PD HPI ABD PAIN - Stated complaint Stated Complaint: BACK PX/FEVER/N - Chief complaint Chief Complaint: Abd Pain - History obtained from History obtained from: Patient - History of Present Illness Timing - onset: How many days ago (4) Timing - duration: Days (4) Timing - details: Gradual onset, Still present, Waxing and waning Quality: Cramping, Aching, Pain Location: All over / everywhere Radiation: Left flank, Right flank (initially but is now to the left flank area) Associated symptoms: Fever (subjective), Dysuria (frequency without burning). No: Nausea, Vomiting, Diarrhea, Constipation (says had firm BM yesterday), Vaginal bleeding, Vaginal dc Similar symptoms before: Has not had sx before Recently seen: Not recently seen Review of Systems Constitutional: reports: Fever. denies: Chills, Myalgias Nose: denies: Rhinorrhea / runny nose, Congestion Throat: denies: Sore throat Respiratory: denies: Cough GI: reports: Abdominal Pain, Nausea. denies: Abdominal Swelling, Vomiting, Constipation, Diarrhea, Bloody / black stool : reports: Frequency. denies: Dysuria, Hematuria, Discharge Skin: denies: Rash, Lesions PD PAST MEDICAL HISTORY - Past Medical History Cardiovascular: Hypertension, High cholesterol Respiratory: Asthma Endocrine/Autoimmune: Type 2 diabetes, HyPOthyroidism, Other GI: GERD : Incontinence HEENT: None Psych: None Musculoskeletal: Fibromyalgia Derm: None - Past Surgical History Past Surgical History: Yes Ortho: Knee replacement, Other /[employer]: Hysterectomy, Oophrectomy HEENT: Tonsil/Adenoidectomy - Present Medications Home Medications: Ambulatory Orders Medication Instructions Recorded Confirmed Duloxetine HCl [Cymbalta] 60 mg PO DAILY 06/13/17 06/14/17 Fludrocortisone [Florinef] 0.1 mg PO DAILY 06/13/17 06/14/17 Hydrocortisone 15 mg PO BIDWM 06/13/17 06/14/17 Levothyroxine [Synthroid] 75 mcg PO DAILY 06/13/17 06/14/17 Lisinopril 5 mg PO DAILY 06/13/17 06/13/17 Mirabegron [Myrbetriq] 50 mg PO DAILY 06/13/17 06/14/17 Omeprazole [PriLOSEC] 20 mg PO DAILY 06/13/17 06/14/17 metFORMIN [Glucophage] 500 mg PO DAILYWM 06/13/17 06/14/17 Montelukast [Singulair] 10 mg PO QPM 06/14/17 06/14/17 Sulfamethox/Trimeth 800/160 1 each PO BID #14 tablet 06/15/17 [Bactrim Ds 800/160] - Allergies Allergies/Adverse Reactions: Allergies Allergy/AdvReac Type Severity Reaction Status Date / Time No Known Drug Allergies Allergy Verified 03/24/18 15:52 - Social History Does the pt smoke?: No Smoking Status: Never smoker - POLST Patient has POLST: No POLST Status: Full Code PD ED PE NORMAL - Vitals Vital signs reviewed: Yes - General General: Alert and oriented X 3, No acute distress, Well developed/nourished - HEENT HEENT: Pharynx benign - Neck Neck: Supple, no meningeal sign, No adenopathy - Cardiac Cardiac: RRR, No murmur - Respiratory Respiratory: Clear bilaterally - Abdomen Abdomen: Normal bowel sounds, Soft, Non distended, No organomegaly, Other (mild tenderness without guarding lower left abd and suprapubic area) - Female Female : Deferred - Rectal Rectal: Deferred - Back Back: No CVA TTP (has lower back pain and in left flank, but not tender to palpation nor percussion. ) - Derm Derm: Normal color, Warm and dry - Extremities Extremities: No deformity, No tenderness to palpate, No edema, No calf tenderness / cord - Neuro Neuro: Alert and oriented X 3, No motor deficit, Normal speech Results - Vitals Vitals: Vital Signs - 24 hr 03/24/18 03/24/18 03/24/18 15:50 17:45 19:34 Temperature 35.7 C L 36.6 C Heart Rate 91 86 78 Respiratory 16 18 16 Rate Blood Pressure 138/78 H 113/78 109/72 O2 Saturation 99 98 100 Oxygen O2 Source Room air - Labs Labs: Microbiology 03/24/18 17:45 Urine Culture - Preliminary Urine,Clean Catch CULTURE IN PROGRESS. RESULTS TO FOLLOW. Laboratory Tests 03/24/18 03/24/18 03/24/18 17:45 18:32 18:32 WBC 9.5 RBC 4.96 Hgb 14.3 Hct 42.7 MCV 86.1 MCH 28.9 MCHC 33.5 RDW 13.7 Plt Count 397 MPV 7.7 L Neut # (Auto) 5.8 Lymph # (Auto) 2.9 [place] # (Auto) 0.6 Eos # (Auto) 0.1 Baso # (Auto) 0.1 Absolute Nucleated RBC 0.01 Nucleated RBC % 0.1 Sodium 131 L Potassium 4.3 Chloride 98 L Carbon Dioxide 24 Anion Gap 9.0 BUN 17 Creatinine 0.7 Estimated GFR (MDRD) 85 L Glucose 107 H Calcium 9.2 Magnesium 2.0 Total Bilirubin 0.6 AST 25 ALT 35 Alkaline Phosphatase 79 Total Protein 7.5 Albumin 4.1 Globulin 3.4 Albumin/Globulin Ratio 1.2 Lipase 36 Urine Color YELLOW Urine Clarity CLEAR Urine pH 6.0 Ur Specific [place] <=1.005 Urine Protein NEGATIVE Urine Glucose (UA) NEGATIVE Urine Ketones NEGATIVE Urine Occult Blood NEGATIVE Urine Nitrite NEGATIVE Urine Bilirubin NEGATIVE Urine Urobilinogen 0.2 (NORMAL) Ur Leukocyte Esterase TRACE H Urine RBC None Seen Urine WBC 0-3 Ur Squamous Epith Cells FEW Squamous Urine Bacteria None Seen Ur Microscopic Review INDICATED Urine Culture Comments INDICATED - Rads (name of study) abd CT Radiology: Prelim report reviewed (no acute process. comment made on generous amount of stool.) PD MEDICAL DECISION MAKING - ED course Complexity details: reviewed results (no obvious cause for the pains. She does have some frequency of urine, but UA appears okay. ), considered differential, d /w patient - Sepsis Event Vital Signs: Vital Signs - 24 hr 03/24/18 03/24/18 03/24/18 15:50 17:45 19:34 Temperature 35.7 C L 36.6 C Heart Rate 91 86 78 Respiratory 16 18 16 Rate Blood Pressure 138/78 H 113/78 109/72 O2 Saturation 99 98 100 Oxygen O2 Source Room air Departure - Departure Disposition: 01 Home, Self Care Clinical Impression: Abdominal pain Qualifiers: Abdominal location: generalized Qualified Code(s): R10.84 - Generalized abdominal pain Condition: Stable Record reviewed to determine appropriate education?: Yes Instructions: ED Abdominal Pain Unkn Cause Follow-Up: Marcela Carreno MD [Primary Care Provider] - Comments: No signs of infection on your urine or blood tests. The CT scan was normal in appearance. They commented on some generous amount of stool so I would consider a stool softener once or twice daily over the next several days. Tylenol or ibuprofen if needed for pains. Follow-up with your primary care in the next couple of days if not improved. Discharge Date/Time: 03/24/18 20:22
[2018-03-24 18:08] LABS: BILIRUBIN,URINE NEGATIVE (NEGATIVE); CLARITY,URINE CLEAR (CLEAR); GLUCOSE, URINE (UA) NEGATIVE (NEGATIVE); KETONES,URINE (UA) NEGATIVE (NEGATIVE); LEUKOCYTE ESTERASE, URINE TRACE (NEGATIVE); NITRITE,URINE NEGATIVE (NEGATIVE); OCCULT BLOOD,URINE NEGATIVE (NEGATIVE); PROTEIN,URINE NEGATIVE (NEGATIVE); UROBILINOGEN,URINE 0.2 (NORMAL) E.U./dL (NORMAL)
[2018-03-24 18:17] LABS: BACTERIA,URINE None Seen /HPF (None Seen); RBC,URINE None Seen /HPF (0-5); SQUAMOUS EPITHELIAL CELL,UR FEW Squamous (<= Few)
[2018-03-24] MEDS ORDERED: SODIUM CHLORIDE 0.9% 1,000 ML IV ONE (18:24)
[2018-03-24] MEDS ORDERED: ONDANSETRON 4 MG/2 ML VIAL IVP STA (18:24)
[2018-03-24] MEDS ORDERED: KETOROLAC 60 MG/2 ML VIAL IVP STA (18:25)
[2018-03-24 18:36] LABS: BASOPHILS # (AUTO) 0.1 10^3/uL (0.0-0.1); BASOPHILS % (AUTO) 1.3 %; EOSINOPHILS # (AUTO) 0.1 10^3/uL (0.0-0.7); EOSINOPHILS % (AUTO) 1.5 %; HGB - HEMOGLOBIN 14.3 g/dL (12.0-16.0); LYMPHOCYTES # (AUTO) 2.9 10^3/uL (1.5-3.5); LYMPHOCYTES % (AUTO) 30.2 %; MEAN CORPUSCULAR HEMOGLOBIN 28.9 pg (27.0-31.0); MEAN CORPUSCULAR HGB CONC 33.5 g/dL (32.0-36.0); MEAN CORPUSCULAR VOLUME 86.1 fL (81.0-99.0); MEAN PLATELET VOLUME 7.7 fL (7.9-10.8); MONOCYTES # (AUTO) 0.6 10^3/uL (0.0-1.0); MONOCYTES % (AUTO) 6.5 %; NEUTROPHILS # (AUTO) 5.8 10^3/uL (1.5-6.6); NEUTROPHILS % (AUTO) 60.5 %; PLT - PLATELET COUNT 397 10^3/uL (130-450); RED BLOOD COUNT 4.96 10^6/uL (4.20-5.40); RED CELL DISTRIBUTION WIDTH 13.7 % (12.0-15.0); WHITE BLOOD COUNT 9.5 x10^3/uL (4.8-10.8)
[2018-03-24 18:47] LABS: ALBUMIN 4.1 g/dL (3.2-5.5); ALBUMIN/GLOBULIN RATIO 1.2 (1.0-2.2); BILIRUBIN,TOTAL 0.6 mg/dL (0.2-1.0); CALCIUM 9.2 mg/dL (8.5-10.3); CREATININE 0.7 mg/dL (0.4-1.0); TOTAL PROTEIN 7.5 g/dL (6.7-8.2)
--- NOTE | 2018-03-24 19:30 | CT Report ---
Reason: flank pain and nausea, left Procedure Date: 03/24/2018 Accession Number: [id number] / [id number] Procedure: CT - Abdomen/Pelvis W/O CPT Code: FULL RESULT: EXAM: CT ABDOMEN AND PELVIS (CT KUB) EXAM DATE: 03/24/2018 06:57 PM. CLINICAL HISTORY: Flank pain and nausea, left. COMPARISONS: None. TECHNIQUE: Routine axial helical CT imaging was performed through the abdomen and pelvis without IV contrast. Reconstructions: Coronal and sagittal. In accordance with CT protocol optimization, one or more of the following dose reduction techniques were utilized for this exam: automated exposure control, adjustment of mA and/or KV based on patient size, or use of iterative reconstructive technique. FINDINGS: Lung Bases: Unremarkable. Right Kidney/Ureter: No stones, hydronephrosis, or hydroureter. No perinephric fat stranding. Left Kidney/Ureter: There is a 9 mm ill-defined parenchymal density at the upper pole of the left kidney. No obstructing stones otherwise seen. Other Solid Organs: Noncontrast images of the solid organs are grossly unremarkable. Gallbladder/Bile Ducts: Unremarkable. Peritoneal Cavity: Large volume of stool throughout the colon. No small bowel obstruction. No free air or fluid collections. Pelvic Organs: The uterus has been removed. The urinary bladder is unremarkable. Vasculature: Unremarkable. Other: None. IMPRESSION: 1. Amorphous calcification at the upper pole of the left kidney possibly representing cyst related calcifications or hemorrhage versus stone. Consider further characterization with renal ultrasound. 2. No renal collecting system stones or obstructive changes otherwise seen. 3. Above average volume of stool throughout the colon suggesting constipation. RADIA
[2018-03-24 19:35] VITALS: BP 109/72
[2018-03-24] MEDS ORDERED: DOCUSATE SODIUM 100 MG CAPSULE PO STA (20:09)
== END 2018-03-24 20:22 | disposition home or self-care (01) ==
LOC: ED 15:45
DX: R10.84 Generalized abdominal pain (principal); I10 Essential (primary) hypertension; E78.00 Pure hypercholesterolemia, unspecified; E11.9 Type 2 diabetes mellitus without complications; E03.9 Hypothyroidism, unspecified; Z79.84 Long term (current) use of oral hypoglycemic drugs
CPT/HCPCS: 36415; 74176; 80053; 81001; 83690; 83735; 85025; 87086; 96374; 96375; 99283; A9270; 81003

== ENCOUNTER 2018-08-24 11:02 | Outpatient (CLI) | payer BC ==
--- NOTE | 2018-09-06 10:42 | Mammography Report ---
Reason: SCREENING MAMMOGRAM Procedure Date: 08/24/2018 Accession Number: [id number] / [id number] Procedure: [facility] - Screening Mammo Dig Bilat CPT Code: FULL RESULT: EXAM: Screening Mammo Dig Bilat DATE: 08/24/2018 11:30 AM CLINICAL HISTORY: Routine screening TECHNIQUE: Bilateral CC and MLO views were obtained. COMPARISON: None available. FINDINGS: There are scattered fibroglandular densities. A few benign-appearing calcifications and benign-appearing axillary lymph nodes are seen bilaterally. No suspicious masses, clustered microcalcifications, or regions of architectural distortion are identified on the left. On the right there is a small nodular density in the retroareolar breast best seen on the MLO projection further evaluation by spot compression and true lateral views and possible ultrasound is suggested. IMPRESSION: Benign findings left breast. Needs additional evaluation right breast. RECOMMENDATION: Additional imaging right breast.. BIRADS CATEGORY 0: Needs additional evaluation Comment: If prior images become available for comparison the need for additional evaluation may be obviated. STANDARD QUALIFYING STATEMENTS: 1. This examination was reviewed with the aid of Computer-Aided Detection (CAD). 2. A negative or benign imaging report should not delay biopsy if clinically suspicious findings are present. Consider surgical consultation if warrented. More than 5% of cancers are not identified by imaging. 3. Dense breasts may obscure an underlying neoplasm.
== END 2018-08-24 11:03 | disposition home or self-care (01) ==
LOC: DI 11:02
PROVIDERS: ATTEND Internal Medicine
DX: Z12.31 Encounter for screening mammogram for malignant neoplasm of breast (principal); R92.8 Other abnormal and inconclusive findings on diagnostic imaging of breast
CPT/HCPCS: 77067

== ENCOUNTER 2018-10-04 13:24 | Outpatient (CLI) | payer BC ==
--- NOTE | 2018-10-04 16:25 | Mammography Report ---
Reason: ABN MAMMO Procedure Date: 10/04/2018 Accession Number: [id number] / [id number] Procedure: [facility] - Diag Special Views Dig RT CPT Code: FULL RESULT: EXAM: Diag Special Views Dig RT DATE: 10/04/2018 1:56 PM CLINICAL HISTORY: Recall from screening exam 08/24/2018. No reported personal or family history of breast cancer. TECHNIQUE: Right CC and MLO spot compression. 90 degree lateral right breast. COMPARISON: 08/24/2018 FINDINGS: The breasts demonstrate scattered fibroglandular densities bilaterally. Right breast: There are no suspicious masses, calcifications or areas of distortion. Possible asymmetry recalled from screening in the subareolar breast does not persist on additional views, consistent with summation of normal tissues. IMPRESSION: Negative examination RECOMMENDATION: Routine annual screening unless otherwise clinically indicated. BI-RADS CATEGORY 1: Negative STANDARD QUALIFYING STATEMENTS: 1. This examination was not reviewed with the aid of Computer-Aided Detection (CAD). 2. A negative or benign imaging report should not preclude biopsy if clinically suspicious findings are present. 3. Dense breasts may obscure an underlying neoplasm. 4. This examination was reviewed with the aid of 3D breast imaging (tomosynthesis).
== END 2018-10-04 13:25 | disposition home or self-care (01) ==
LOC: DI 13:24
PROVIDERS: ATTEND Internal Medicine
DX: R92.8 Other abnormal and inconclusive findings on diagnostic imaging of breast (principal)